=== PATIENT | male | born 1995 ===

== ENCOUNTER 2020-07-14 09:20 | Emergency (ER) | payer SELFPAY ==
[~2020-07-14] VITALS: Ht 182.9 cm; Wt 70.8 kg
[2020-07-14 09:34] VITALS: Ht 182.9 cm; Wt 70.8 kg
[2020-07-14 10:17] VITALS: BP 118/68
== END 2020-07-14 10:15 | disposition home or self-care (01) ==
LOC: ED 09:20
DX: A64 Unspecified sexually transmitted disease (principal); N34.2 Other urethritis
CPT/HCPCS: 87491; 87591; J0696